=== PATIENT | female | born 1960 | race American Indian/Alaskan Native ===

== ENCOUNTER 2017-11-02 07:57 | Outpatient (CLI) | payer BC ==
--- NOTE | 2017-11-05 09:41 | Mammography Report ---
BILATERAL DIGITAL SCREENING MAMMOGRAM with CAD: 11/02/17 CLINICAL: Routine screening. COMPARISON:None available. However, a prior mammogram was apparently done at [facility]. FINDINGS: The breasts are heterogeneously dense, which may obscure small masses. Bilateral circumscribed masses require comparison with a prior mammogram or additional imaging.No architectural distortion or suspicious calcifications. IMPRESSION: Bilateral masses requiring further evaluation. BI-RADS CATEGORY: 0 -- Additional Evaluation Required RECOMMENDATION: Comparison with a previous mammogram. We will attempt to obtain a prior mammogram for comparison. If we do not obtain a prior mammogram within 30 days, a revised report will be issued recommending a recall for additional imaging. Please be advised that the patient should not schedule an appointment for return until adequate time (at least 2 weeks) has passed for us to obtain the prior mammogram. ACR BI-RADS MAMMOGRAPHIC CODES: 0 = Needs additional imaging evaluation; 1 = Negative; 2 = Benign; 3 = Probably benign; 4 = Suspicious; 5 = Malignant; 6 = Known biopsy-proven malignancy COMMENT: 1. Dense breast tissue, i.e., adenosis, fibrocystic changes, etc., may obscure an underlying neoplasm. 2. Approximately 10% of cancers are not detected with mammography. 3. A negative mammography report should not delay biopsy if a clinically suspicious mass is present. COMMENT: Patient follow-up letters are generated via our [employer] application.
== END 2017-11-02 07:58 | disposition home or self-care (01) ==
LOC: MAMMO 07:57
PROVIDERS: ATTEND Internal Medicine
DX: Z12.31 Encounter for screening mammogram for malignant neoplasm of breast (principal)
CPT/HCPCS: 77067

== ENCOUNTER 2017-11-26 08:49 | Outpatient (CLI) | payer BC ==
--- NOTE | 2017-11-27 11:30 | Mammography Report ---
LEFT DIGITAL DIAGNOSTIC MAMMOGRAM and LEFT BREAST ULTRASOUND: 11/26/17 08:49:00 CLINICAL: Recall for asymmetries. COMPARISON:11/02/17 screening FINDINGS: Spot magnification MLO and CC views were obtained. Satisfactory effacement of the inner asymmetry on the CC view and the upper asymmetry on the MLO view. A partially circumscribed round asymmetry in the outer breast persists on the spot magnification CC view. There is no correlate on the MLO view. Ultrasound of the left breast was performed and demonstrated an oval solid hypoechoic relatively smooth mass at 1 o'clock 7 cm from the nipple. It measures 8 x 7 x 4 mm and may correlate with the asymmetry on the CC view of the mammogram. Additional solid hypoechoic masses in the left breast correlate with benign mammographically stable masses. A segment of duct ectasia at 4 o'clock 10 cm from the nipple measures approximately 3 cm in length and there is intraductal debris versus mass. However, no blood flow is detected by color Doppler ultrasound of the duct. IMPRESSION: 1. A probably benign 8mm mammographic asymmetry and a probably benign 8mm left breast mass at 1 o'clock 7 cm from the nipple. These may or may not be the same thing. 2. Probably benign duct ectasia with intraductal debris at 4 o'clock 10 cm from the nipple. BI-RADS CATEGORY: 3 - - Probably Benign RECOMMENDATION: Six month followup left mammogram and left breast ultrasound. The ultrasound should be targeted at 4 o'clock 10 cm from the nipple and at 1 o'clock 7 cm from the nipple unless the mammogram demonstrates the findings. ACR BI-RADS MAMMOGRAPHIC CODES: 0 = Needs additional imaging evaluation; 1 = Negative; 2 = Benign; 3 = Probably benign; 4 = Suspicious; 5 = Malignant; 6 = Known biopsy-proven malignancy COMMENT: 1. Dense breast tissue, i.e., adenosis, fibrocystic changes, etc., may obscure an underlying neoplasm. 2. Approximately 10% of cancers are not detected with mammography. 3. A negative mammography report should not delay biopsy if a clinically suspicious mass is present. COMMENT: Patient follow-up letters are generated via our [employer] application.
== END 2017-11-26 08:50 | disposition home or self-care (01) ==
LOC: MAMMO 08:49
PROVIDERS: ATTEND Nurse Practitioner Family
DX: R92.8 Other abnormal and inconclusive findings on diagnostic imaging of breast (principal)

== ENCOUNTER 2018-11-05 09:32 | Outpatient (CLI) | payer BC ==
--- NOTE | 2018-11-06 10:55 | Mammography Report ---
BILATERAL DIGITAL DIAGNOSTIC MAMMOGRAM with CAD and LEFT BREAST ULTRASOUND: 11/05/18 CLINICAL: Followup after left benign needle biopsy of abnormally thickened ducts at 5 o'clock 10 cm from the nipple on 06/18/18. Pathology result: Benign breast tissue with proliferative fibrocystic changes including sclerosing adenosis, columnar cell changes and papillary apocrine metaplasia. Negative for atypical proliferative lesion or carcinoma. Followup additional left breast mass is identified ultrasound. COMPARISON:06/18/18 and 11/02/17 mammograms and 11/26/17 left breast ultrasound. FINDINGS: The breasts are heterogeneously dense, which may obscure small masses. Stable bilateral circumscribed masses.No new mass, suspicious architectural distortion or suspicious calcifications . Mild duct ectasia is identified at a biopsy clip in the left breast at the site of the most recent biopsy.. Ultrasound of the left breast (including all four quadrants and the retroareolar area) was performed. Mild focal duct ectasia at the site of the most recent biopsy. No intraductal mass or thickening of the ducts is identified. An oval solid heterogeneous hypoechoic shadowing mass at 12 o'clock 5 cm from the nipple measures 1.8 x 1.1 x 1.0 cm compared to 1.7 x 1.3 x 1.2 cm on the last exam. An oval relatively smooth solid hypoechoic mass at 1 o'clock 5 cm from the nipple measures 7 x 6 x 4 mm and correlates with the mass described at the 1 o'clock 7 cm from the nipple on the last exam. Measurements are no significantly changed. An oval solid smooth hypoechoic mass at 9 o'clock 5 cm from the nipple measures 1.2 x 0.7 x 0.8 cm. It produces shadowing and appears to correlate with the solid mass previously described to be at 7 o'clock 7 cm from the nipple. It has not changed in size. An oval heterogeneous hypoechoic mass with a lobular margin at 11 o'clock 12 cm from the nipple measures 1.0 x 0.7 x 0.7 cm compared to 1.3 x 0.6 x 0.9 cm. No new mass. IMPRESSION: Persistent benign focal duct ectasia at the most recent biopsy site in the left breast. Stable benign left breast masses. BI-RADS CATEGORY: 2 -- Benign RECOMMENDATION: Routine mammographic screening in one year. ACR BI-RADS MAMMOGRAPHIC CODES: 0 = Needs additional imaging evaluation; 1 = Negative; 2 = Benign; 3 = Probably benign; 4 = Suspicious; 5 = Malignant; 6 = Known biopsy-proven malignancy COMMENT: 1. Dense breast tissue, i.e., adenosis, fibrocystic changes, etc., may obscure an underlying neoplasm. 2. Approximately 10% of cancers are not detected with mammography. 3. A negative mammography report should not delay biopsy if a clinically suspicious mass is present. COMMENT: Patient follow-up letters are generated by our [employer] application.
== END 2018-11-05 09:33 | disposition home or self-care (01) ==
LOC: SPVWC 09:32
PROVIDERS: ATTEND Surgery
DX: Z12.31 Encounter for screening mammogram for malignant neoplasm of breast (principal); N60.42 Mammary duct ectasia of left breast
CPT/HCPCS: 77067